=== PATIENT | male | born 1950 | race Caucasian/White ===

== ENCOUNTER 2022-11-30 18:12 | Emergency (ER) | payer MEDICARE, OTHER | END 2022-11-30 20:43 | disposition home or self-care (01) | LOC: JP.ED 18:12 | DX: S06.0X1A Concussion with loss of consciousness of 30 minutes or less, initial encounter (principal); Z79.899 Other long term (current) drug therapy; Z88.8 Allergy status to other drugs, medicaments and biological substances; W18.00XA Striking against unspecified object with subsequent fall, initial encounter | CPT/HCPCS: 70450; 99284 ==